=== PATIENT | female | born 1970 | race Hispanic/Latino ===

== ENCOUNTER → 2024-03-16 10:05 | Outpatient (CLI) | payer OTHER, MEDICAID, SELFPAY ==
[2024-03-16 10:31] LABS: Add Manual Diff / Slide Review NO; Basophils Absolute Auto 0 /uL (0-100); Basophils Percent Auto 0.6 % (0-2); Eosinophils Absolute Auto 300 /uL (0-450); Eosinophils Percent Auto 5.7 % (2-4); Hemoglobin 13.6 g/dL (12.0-16.0); Lymphocytes Absolute Auto 1600 /uL (1100-4500); Lymphocytes Percent Auto 35.1 % (25-40); Mean Corpuscular Hemoglobin 29.3 PG (26-34); Mean Corpuscular Volume 86.2 fL (80-100); Monocytes Absolute Auto 300 /uL (0-900); Neutrophils Absolute Auto 2300 /uL (1500-7000); Neutrophils Percent Auto 51.6 % (50-75); Platelet Count 224 X10^3/uL (150-400); Red Blood Cell Count 4.63 X10^6/uL (4.0-5.2); Red Cell Distribution Width 13.5 % (11.6-14.8); White Blood Cell Count 4.4 X10^3/uL (4.5-11.0)
[2024-03-16 10:51] LABS: Hemoglobin A1C% w Est Avg Glu 5.2 % (4.0-6.0)
[2024-03-16 10:58] LABS: BUN Creatinine Ratio 27.7 (6-22); Blood Urea Nitrogen 18 mg/dL (7-17); Calcium 9.3 mg/dL (8.4-10.2); Carbon Dioxide 26 mmol/L (22-32); Chloride 108 mmol/L (98-107); Cholesterol 215 mg/dL (140-199); Estimated Glomerular Filt Rate > 60 mL/min (>60); Glucose 100 mg/dL (70-100); HDL Cholesterol 65 mg/dL (40-60); HEMOLYSIS < 15 (0-50); LDL Cholesterol Calculated 134 mg/dL (<100); Potassium 3.9 mmol/L (3.4-5.1); Sodium 139 mmol/L (137-145); Triglycerides 78 mg/dL (35-150)
[2024-03-16 12:26] LABS: HIV 1 & 2 Ab/Ag 4th Gen Combo NEGATIVE (NEGATIVE); Hep C Virus Ab w/Reflex Quant NEGATIVE s/c (NEGATIVE)
== END ==
PROVIDERS: PCP Family Medicine; Referring Provider Family Medicine; Visit Provider Family Medicine
DX: Z11.59 Encounter for screening for other viral diseases (principal); Z13.220 Encounter for screening for lipoid disorders; E66.9 Obesity, unspecified; Z13.9 Encounter for screening, unspecified; Z11.4 Encounter for screening for human immunodeficiency virus [HIV]; Z13.1 Encounter for screening for diabetes mellitus
CPT/HCPCS: 36415; 80048; 80061; 83036; 85025; 86803; 87389

== ENCOUNTER 2024-03-26 12:56 | Day surgery (SDC) | payer OTHER, MEDICAID, SELFPAY ==
[2024-03-26] MEDS: LACTATED RINGERS 1,000 ML 42 ML IV (13:34)
--- NOTE | 2024-03-26 13:58 | P.HP_ITS ---
History of Present Illness History of Present Illness Date Patient Seen: 03/26/24 Time Patient Seen: 13:58 Chief complaint: Colonoscopy Narrative: 53-year-old woman here for 1st time screening colonoscopy. No abdominal concerns today. No family history of colon cancer. 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[employer] Smoking Status: Former smoker alcohol intake: former substance use type: does not use Meds Home Medications and Allergies Home Medications Medication Instructions Recorded Confirmed Type peg 3350-electrolytes 236 240 ml PO Q10M #4,000 mL 03/16/24 03/26/24 Rx gram-22.74 gram-6.74 gram-5.86 gram solution (Golytely) Allergies Allergy/AdvReac Type Severity Reaction Status Date / Time No Known Drug Allergies Allergy Verified 03/26/24 13:35 Exam Narrative Exam Narrative: General adult woman alert oriented no acute distress Chest nonlabored respiration Extremities warm well perfused Assessment & Plan Assessment & Plan narrative: The patient requires colorectal screening and colonoscopy is recommended. Technical details were discussed. Risks, benefits, alternatives explained. Risks including but not limited to myocardial infarction, aspiration, bleeding, pain, missed lesion, incomplete examination, need for further radiographic studies, intestinal injury, and need for major abdominal surgery were discussed. All questions were answered to their satisfaction, and they are in agreement with this plan. Time-Based Coding :: [TOTAL MINUTES] spent with patient and on the chart (including review of chart, obtaining history, exam, reviewing outside data, placing orders, documenting exam and treatment plan, and counseling patient) on [DATE].
[2024-03-26 14:25] VITALS: BP 101/66; PULSE 69; RESP 12; O2SAT 97
[2024-03-26 14:29] VITALS: BP 106/66; PULSE 60; RESP 14; O2SAT 98
--- NOTE | 2024-03-26 14:29 | P.OP.COLON_ITS ---
Operative Date/Time/Diagnoses Date of procedure: 03/26/24 Time of procedure: 14:29 Pre-op diagnosis: Colorectal screening Procedure & Clinicians Study performed: Colonoscopy Same procedure as scheduled: Yes Indications: Colorectal screening Surgeon: Lamont Lr Procedure Notes Procedure in detail: The history and physical was performed/updated and the patient is ASA class is 2. The procedure was discussed in detail with the patient. Potential risks complications including infection, bleeding, missed diagnosis, perforation, need for surgery, and were explained. Their questions were answered and informed consent was obtained. Patient was brought to the procedure room and placed standard monitoring equipment. The patient's vital signs were monitored continuously throughout the entire procedure. Prior to starting time-out was performed. The patient was placed in the left lateral recumbent position. Procedural sedation was administered by anesthesia. Examination began with a thorough inspection of the perianal area there was no evidence of fissures, fistulae, external hemorrhoids or cutaneous malignancy. The colonoscopy scope was then placed into the anal canal and was advanced to the cecum, which was identified by the ileocecal valve , the appendiceal orifice and the confluence of the taenia. The scope was then slowly withdrawn examining colon thoroughly in all directions, irrigating it of any residual stool. The scope was retroflexed within the rectum The patient tolerated the procedure well. They will be discharged once criteria are met. The prep was of good/excellent quality. The withdrawl time was 7 minutes. FINDINGS * Unremarkable colonoscopy. Normal healthy colonic mucosa without mass or polyps. Specimen(s): none sent Impression: Normal colonoscopy Post-procedure Recommendations: Colonoscopy in 10 years Disposition: same day surgery
[2024-03-26 14:34] VITALS: BP 113/69; PULSE 62; RESP 14; TEMP 36.6; O2SAT 98
== END 2024-03-26 14:55 | disposition home or self-care (01) ==
PROVIDERS: PCP Family Medicine; Referring Provider Surgery; Visit Provider Surgery
PROC: 0DJD8ZZ Inspection of Lower Intestinal Tract, Via Natural or Artificial Opening Endoscopic (ICD-10-PCS; CPT 45378; principal; 2024-03-26 13:45)
DX: Z12.11 Encounter for screening for malignant neoplasm of colon (principal)
CPT/HCPCS: 45378; J2704

== ENCOUNTER → 2024-04-21 08:00 | Outpatient (CLI) | payer OTHER, MEDICAID, SELFPAY ==
--- NOTE | 2024-04-21 08:01 | DI.US.S_ITS ---
PROCEDURE: US PELVIC COMPLETE INDICATIONS: pelvic pain and irregular menses TECHNIQUE: Real-time scanning was performed of the pelvic organs, with image documentation. Additional endovaginal scanning was necessary due to incomplete visualization of the adnexal and endometrial structures by transabdominal scanning. COMPARISON: None. FINDINGS: Uterus: Uterus is anteverted and normal in size at 8.2 x 3.7 x 4.7 cm. The myometrium is homogeneous. The endometrium measures 2 mm combined thickness. Ovaries: The right ovary measures 1.1 x 1.7 x 1.4 cm, with a calculated ovarian volume of 1.4 cc. The left ovary measures 1.9 x 1.1 x 2.2 cm, with a calculated ovarian volume of 2.2 cc. The ovaries have a normal sonographic appearance. Less than 12 follicles can be seen in each ovary. No adnexal masses are seen. Thick-walled left ovarian lesion with central anechoic appearance measuring 1.0 x 0.8 x 0.9 centimeter. Other: No pathologic free abdominal or pelvic fluid. IMPRESSION: Thick-walled left ovarian lesion measuring 1 centimeter. Findings could represent a degenerating corpus luteum , as the menopausal status was not recorded. Consider 6-12 week follow-up to ensure resolution . We strive to produce accurate, complete, and clear reports of imaging services. To assist us in improving patient care, this report was composed using standard report templates and voice recognition software. Therefore, it may contain abnormal punctuation, insertions and/or omissions. Occasional wrong-word or sound-alike substitutions may occur. Though we review the report and make efforts to correct it, we do recommend that the report be read carefully in proper context to recognize any text inaccuracies. Dictated by: Alexei Grewal M.D. on 04/21/2024 at 12:20 Approved by: Alexei Grewal M.D. on 04/21/2024 at 12:28
--- NOTE | 2024-04-21 09:22 | DI.RAD.S_ITS ---
PROCEDURE: XR HIP W PEL IF DONE STUART MIN 4V INDICATIONS: Hip Pain TECHNIQUE: AP pelvis with lateral view(s) of the 2 views of the hip(s). COMPARISON: None. FINDINGS: Bones: There are no osseous abnormalities. SI and hip joints: Normal in width and alignment without arthritic change Soft tissues: No soft tissue swelling, calcification or mass. IMPRESSION: Normal pelvis Dictated by: Kade Arthur M.D. on 04/22/2024 at 7:25 Approved by: Kade Arthur M.D. on 04/22/2024 at 7:26
== END ==
PROVIDERS: PCP Family Medicine; Referring Provider Family Medicine; Visit Provider Family Medicine
DX: N92.6 Irregular menstruation, unspecified (principal); R10.2 Pelvic and perineal pain; M25.551 Pain in right hip; M25.552 Pain in left hip; N83.9 Noninflammatory disorder of ovary, fallopian tube and broad ligament, unspecified
CPT/HCPCS: 73522; 76856

== ENCOUNTER → 2024-06-04 08:09 | Outpatient (CLI) | payer OTHER, MEDICAID, SELFPAY ==
--- NOTE | 2024-06-04 08:10 | DI.US.S_ITS ---
PROCEDURE: US PELVIC COMPLETE INDICATIONS: pelvic pain and ovarian cyst TECHNIQUE: Real-time scanning was performed of the pelvic organs, with image documentation. Additional endovaginal scanning was necessary due to incomplete visualization of the adnexal and endometrial structures by transabdominal scanning. COMPARISON: [facility], US, US PELVIC COMPLETE, 04/21/2024, 8:41. FINDINGS: Uterus: Uterus is anteverted and normal in size at 7.6 x 5.5 x 3.8 cm. The myometrium is homogeneous. The endometrium measures 4 mm combined thickness. No uterine fibroids. Ovaries: The right ovary measures 2.0 x 1.6 x 1.1 cm, with a calculated ovarian volume of 1.8 cc. The left ovary measures 2.4 x 1.9 x 1.1 cm, with a calculated ovarian volume of 2.6 cc. The ovaries have a normal sonographic appearance. Less than 12 follicles can be seen in each ovary. No adnexal masses are seen. Other: No pathologic free abdominal or pelvic fluid. Small fat containing umbilical hernia with wall defect measuring 1.3 centimeters. The hernia is mostly reducible. IMPRESSION: Resolution of prior thick-walled left ovarian cyst. The uterus and ovaries are normal in appearance. Small mostly reducible fat containing umbilical hernia with wall defect measuring 1.3 centimeters. We strive to produce accurate, complete, and clear reports of imaging services. To assist us in improving patient care, this report was composed using standard report templates and voice recognition software. Therefore, it may contain abnormal punctuation, insertions and/or omissions. Occasional wrong-word or sound-alike substitutions may occur. Though we review the report and make efforts to correct it, we do recommend that the report be read carefully in proper context to recognize any text inaccuracies. Dictated by: Meir Dudley M.D. on 06/04/2024 at 10:09 Approved by: Meir Dudley M.D. on 06/04/2024 at 10:11
== END ==
PROVIDERS: PCP Family Medicine; Referring Provider Family Medicine; Visit Provider Family Medicine
DX: R10.2 Pelvic and perineal pain (principal); K42.9 Umbilical hernia without obstruction or gangrene; N83.209 Unspecified ovarian cyst, unspecified side
CPT/HCPCS: 76830; 76856

== ENCOUNTER → 2024-06-18 14:12 | Outpatient (CLI) | payer OTHER, MEDICAID, SELFPAY ==
[2024-06-18 15:55] LABS: Free T4, Direct Thyroxine 0.89 ng/dL (0.78-2.19)
[2024-06-18 16:00] LABS: Follicle Stimulating Hormone 33.8 mIU/mL; Luteinizing Hormone 35.4 mIU/mL
[2024-06-18 16:09] LABS: Thyroid Stimulating Hormone 0.619 uIU/mL (0.47-4.68)
[2024-06-18 16:15] LABS: Estradiol, Total 14.6 pg/mL
== END ==
PROVIDERS: PCP Family Medicine; Referring Provider Family Medicine; Visit Provider Family Medicine
DX: N95.1 Menopausal and female climacteric states (principal); N92.6 Irregular menstruation, unspecified; K03 Other diseases of hard tissues of teeth; R10.31 Right lower quadrant pain; F32.1 Major depressive disorder, single episode, moderate; L98.8 Other specified disorders of the skin and subcutaneous tissue
CPT/HCPCS: 36415; 82670; 83001; 83002; 84439; 84443; 84481

== ENCOUNTER → 2024-07-27 12:52 | Outpatient (CLI) | payer OTHER, SELFPAY ==
--- NOTE | 2024-07-27 | DI.MG.S_ITS ---
BILATERAL DIGITAL SCREENING MAMMOGRAM 3D/2D WITH CAD: 07/27/2024 CLINICAL: Routine screening. Comparison is made to exam dated: 06/18/2023 mammogram - [facility]. There are scattered areas of fibroglandular density (category b / 25%-50% glandular tissue). Current study was also evaluated with a Computer Aided Detection (CAD) system. No significant masses, calcifications, or other findings are seen in either breast. There has been no significant interval change. IMPRESSION: NEGATIVE There is no mammographic evidence of malignancy. A 1 year screening mammogram is recommended. Based on the Tyrer Cuzick model (a risk assessment model) the patient's lifetime risk is 7.5% and her 10 year risk is 1.9%. According to the ACR, ACS, and NCCN guidelines, an annual breast MRI exam along with mammogram is recommended if the patient's lifetime risk is 20% or greater. This exam was interpreted at Station ID: [id number]. NOTE: For mammograms, a report in lay terms will be sent to the patient. Approximately 15% of breast malignancies will not be visualized mammographically. In the management of a palpable breast mass, a negative mammogram must not discourage biopsy of a clinically suspicious lesion. Electronically Signed By: Stewart goff/harmeet:07/27/2024 14:36:27 letter sent: Normal Exam ACR BI-RADS Category 1: Negative
== END ==
PROVIDERS: PCP Family Medicine; Referring Provider Family Medicine; Visit Provider Family Medicine
DX: Z12.31 Encounter for screening mammogram for malignant neoplasm of breast (principal)
CPT/HCPCS: 77063; 77067

== ENCOUNTER → 2024-09-20 08:18 | Outpatient (CLI) | payer OTHER, SELFPAY ==
[2024-09-20 09:08] LABS: Influenza A - CEPHEID Flu A POSITIVE (NEGATIVE); Influenza B - CEPHEID Flu B NEGATIVE (NEGATIVE); Respiratory Syncytial Virus Negative (Negative)
[2024-09-20 09:23] LABS: COVID-19 CEPHEID 4-PLEX PCR Negative (Negative)
== END ==
PROVIDERS: PCP Family Medicine; Visit Provider Nurse Practitioner Family
DX: R05.1 Acute cough (principal); J02.9 Acute pharyngitis, unspecified
CPT/HCPCS: 87635; 87400 ×2; 87420; 0241U; 87070

== ENCOUNTER 2024-09-22 10:12 | Emergency (ER) | payer OTHER, SELFPAY ==
[2024-09-22 10:30] VITALS: BP 137/90; PULSE 71; RESP 18; TEMP 36.4; O2SAT 98; BMI 30.2
--- NOTE | 2024-09-22 10:44 | DI.RAD.S_ITS ---
PROCEDURE: XR CHEST 1V INDICATIONS: chest pain TECHNIQUE: One view of the chest was acquired. COMPARISON: None. FINDINGS AND IMPRESSION: Low lung volumes. No dense airspace disease. No pleural effusions. Heart size is at the upper limit of normal. Degenerative osseous changes. Dictated by: Stewart Rodrigues M.D. on 09/22/2024 at 11:30 Approved by: Stewart Rodrigues M.D. on 09/22/2024 at 11:31
--- NOTE | 2024-09-22 10:44 | EKG_ITS ---
[address] [address] [address], [place] [address] Test Date: 2024-09-22 Pat Name: Leda Dalton Department: Room: Gender: Female Curriculum Coordinator: YUKI : 1970 Requested By: Order Number: [id number] Reading MD: Kade Meza MD Measurements Intervals [place] Rate: 63 P: 14 MA: 136 QRS: 29 QRSD: 76 T: 31 QT: 394 QTc: 403 Interpretive Statements Normal sinus rhythm Electronically Signed On 09-23-2024 7:36:21 PST by Kade Meza MD
[2024-09-22 10:56] LABS: Add Manual Diff / Slide Review NO; Basophils Absolute Auto 0 /uL (0-100); Basophils Percent Auto 0.7 % (0-2); Eosinophils Absolute Auto 500 /uL (0-450); Eosinophils Percent Auto 12.3 % (2-4); Hematocrit 40.9 % (36-46); Hemoglobin 13.7 g/dL (12.0-16.0); Lymphocytes Absolute Auto 1600 /uL (1100-4500); Lymphocytes Percent Auto 42.6 % (25-40); Mean Corpuscular HGB Conc 33.4 % (30-36); Mean Corpuscular Hemoglobin 29.1 PG (26-34); Mean Corpuscular Volume 86.9 fL (80-100); Monocytes Absolute Auto 400 /uL (0-900); Monocytes Percent Auto 10.5 % (3-14); Neutrophils Absolute Auto 1300 /uL (1500-7000); Neutrophils Percent Auto 33.9 % (50-75); Platelet Count 208 X10^3/uL (150-400); Red Blood Cell Count 4.71 X10^6/uL (4.0-5.2); Red Cell Distribution Width 13.6 % (11.6-14.8); White Blood Cell Count 3.8 X10^3/uL (4.5-11.0)
[2024-09-22 11:03] LABS: Prothrombin Time 11.1 SECONDS (9.4-12.5)
[2024-09-22 11:05] LABS: PTT Partial Thromboplastin Tim 33 SECONDS (25.1-36.5)
[2024-09-22 11:06] LABS: Alanine Aminotransferase 44 IU/L (<35); Albumin 4.3 g/dL (3.5-5.0); Albumin Globulin Ratio 1.3 (1.0-2.8); Alkaline Phosphatase 100 U/L (38-126); Aspartate Aminotransferase 44 IU/L (14-36); BUN Creatinine Ratio 27.3 (6-22); Bilirubin Total 0.3 mg/dL (0.2-1.3); Blood Urea Nitrogen 15 mg/dL (7-17); Carbon Dioxide 26 mmol/L (22-32); Chloride 107 mmol/L (98-107); Creatine Kinase 49 U/L (30-135); Estimated Glomerular Filt Rate > 60 mL/min (>60); Globulin 3.4 g/dL (1.7-4.1); Glucose 91 mg/dL (70-100); HEMOLYSIS < 15 (0-50); Lipase 78 U/L (23-300); Magnesium 2.1 mg/dL (1.6-2.3); Potassium 4.3 mmol/L (3.4-5.1); Sodium 140 mmol/L (137-145); Total Protein 7.7 g/dL (6.3-8.2)
--- NOTE | 2024-09-22 11:14 | ED_ITS ---
HPI - Chest Pain General Chief Complaint: Chest Pain Stated Complaint: Mild chest pain Time Seen by Provider: 09/22/24 10:46 Source: patient Mode of arrival: Ambulatory Limitations: no limitations History of Present Illness HPI narrative: Patient here for left-sided chest pain radiating to left arm and tingling to the legs. [employer] Operator services used. Patient has tested positive for the flu this past weekend. Has cough cold congestion. Pain is constant. 8/10 sharp burning pain. Patient denies any history of heart attack strokes or diabetes. No primary family history of heart attack. Grandfather did have heart attack. Patient does not smoke. No exertional chest pain or shortness of breath. Patient has low heart score. Heart score of 2. No history of blood clots in legs or lungs. No history aortic dissection or aneurysm. Pain is mostly left- sided chest. It is constant since last night. It does get worse with coughing and deep breath. Related Data Previous Rx's Medication Instructions Recorded benzonatate 200 mg capsule 200 mg PO BID PRN cough #28 caps 09/20/24 Allergies Allergy/AdvReac Type Severity Reaction Status Date / Time No Known Drug Allergies Allergy Verified 09/20/24 08:12 Review of Systems Review of Systems Narrative: GENERAL: Positive chills, fatigue, malaise, fever, sweats. HEENT: Negative sinus pain, ear pain, sore throat RESPIRATORY: Negative dyspnea, cough CARDIOVASCULAR: Positive chest pain, negative palpitations GASTROINTESTINAL: Negative nausea, vomiting, abdominal pain : Negative dysuria, frequency, hematuria MUSCULOSKELETAL: Negative muscle or bony pain SKIN: Negative rash, skin lesions NEUROLOGIC: Negative weakness, positive numbness ROS Unobtainable: All systems reviewed & are unremarkable except as noted in HPI and below Patient History Social History marital status: details: Lives with daughter, son-in-law, grandson household members: family lives independently: Yes housing: condominium occupational status: employed 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 EYES: Pupils equal round ENT: Mucous membranes moist. NECK: Trachea midline. CARDIOVASCULAR: Regular rate and rhythm strong bilateral carotid and radial pulses RESPIRATORY: Clear to auscultation. Breath sounds equal bilaterally. No wheezes, rales, or rhonchi. GASTROINTESTINAL: Abdomen soft, non-tender EXTREMITIES: No gross deformities. BACK: No flank tenderness. NEURO: AOx4. Clear speech, no slurred speech, light touch intact bilateral face hands and legs strong equal candy separator hard. Fast exam is negative negative pronator drift SKIN: Warm and dry PSYCH: Not anxious, is cooperative Initial Vital Signs Initial Vital Signs: Vital Signs Temperature 97.6 F 09/22/24 10:30 Pulse Rate 71 09/22/24 10:30 Respiratory Rate 18 09/22/24 10:30 Blood Pressure 137/90 09/22/24 10:30 Pulse Oximetry 98 09/22/24 10:30 Oxygen Delivery Method Room Air 09/22/24 10:30 Scores HEART Score Heart Score history: Slightly Suspicious Heart Score EKG: Normal Heart Score Age: 45-64 years old Heart Score risk factors: 1-2 risk factors Heart Score troponin: < or = to normal limit Heart Score Total: 2 Course Orders Ordered: Discontinued Medications Ketorolac Tromethamine (Ketorolac 30 Mg/Ml Vial) 15 mg IV NOW ONE Stop: 09/22/24 11:18 Last Admin: 09/22/24 14:12 Dose: 15 mg Documented By: JERRY Sodium Chloride (Sodium Chloride 0.9% Flush) 50 ml IV NOW ONE Stop: 09/22/24 11:20 Last Admin: 09/22/24 14:13 Dose: Not Given Documented By: JERRY Vital Signs Vital signs: Vital Signs - 8 hr 09/22/24 10:30 09/22/24 13:46 Temperature 97.6 F 98.0 F Pulse Rate 71 60 Respiratory Rate 18 Blood Pressure 137/90 120/76 Pulse Oximetry 98 98 Oxygen Delivery Method Room Air Room Air MDM - Chest Pain Lab Data 09/22/24 10:48 09/22/24 10:48 Labs: Lab Results 09/22/24 Range/Units 10:48 WBC 3.8 L (4.5-11.0) X10^3/uL RBC 4.71 (4.0-5.2) X10^6/uL Hgb 13.7 (12.0-16.0) g/dL Hct 40.9 (36-46) % MCV 86.9 (80-100) fL MCH 29.1 (26-34) PG MCHC 33.4 (30-36) % RDW 13.6 (11.6-14.8) % Plt Count 208 (150-400) X10^3/uL Neut % (Auto) 33.9 L (50-75) % Lymph % (Auto) 42.6 H (25-40) % [place] % (Auto) 10.5 (3-14) % Eos % (Auto) 12.3 H (2-4) % Baso % (Auto) 0.7 (0-2) % Neut # (Auto) 1300 L (2125-5799) /uL Lymph # (Auto) 1600 (9941-7143) /uL [place] # (Auto) 400 (0-900) /uL Eos # (Auto) 500 H (0-450) /uL Baso # (Auto) 0 (0-100) /uL PT 11.1 (9.4-12.5) SECONDS INR 1.0 (0.9-1.3) APTT 33 (25.1-36.5) SECONDS Sodium 140 (137-145) mmol/L Potassium 4.3 (3.4-5.1) mmol/L Chloride 107 (98-107) mmol/L Carbon Dioxide 26 (22-32) mmol/L BUN 15 (7-17) mg/dL Creatinine 0.55 (0.52-1.04) mg/dL Estimated GFR > 60 (>60) mL/min BUN/Creatinine Ratio 27.3 H (6-22) Glucose 91 (70-100) mg/dL Calcium 9.0 (8.4-10.2) mg/dL Magnesium 2.1 (1.6-2.3) mg/dL Total Bilirubin 0.3 (0.2-1.3) mg/dL AST 44 H (14-36) IU/L ALT 44 H (<35) IU/L Alkaline Phosphatase 100 (38-126) U/L Total Creatine Kinase 49 (30-135) U/L Troponin I < 0.012 (0.01-0.034) ng/mL NT-Pro-B Natriuret Pep < 20 (<125) pg/mL Total Protein 7.7 (6.3-8.2) g/dL Albumin 4.3 (3.5-5.0) g/dL Globulin 3.4 (1.7-4.1) g/dL Albumin/Globulin Ratio 1.3 (1.0-2.8) Lipase 78 (23-300) U/L Imaging Data Chest x-ray: Radiologist's Impression: [address] [address] XRay Report Signed Patient: Leda Dalton I MR#: [id number] : 1970 Acct:[id number] Age/Sex: 54 / F Date of Service: 09/22/24 Loc: ED Accession Number: [id number] Procedure: XR chest 1V Ordering Provider: Jones Shafer MD PROCEDURE: XR CHEST 1V INDICATIONS: chest pain TECHNIQUE: One view of the chest was acquired. COMPARISON: None. FINDINGS AND IMPRESSION: Low lung volumes. No dense airspace disease. No pleural effusions. Heart size is at the upper limit of normal. Degenerative osseous changes. Dictated by: Stewart Rodrigues M.D. on 09/22/2024 at 11:30 Approved by: Stewart Rodrigues M.D. on 09/22/2024 at 11:31 CT scan - chest: Radiologist's Impression: [place] [address] CT Scan Report Signed Patient: Leda Dalton I MR#: [id number] : 1970 Acct:[id number] Age/Sex: 54 / F Date of Service: 09/22/24 Loc: ED Accession Number: [id number] Procedure: CT angio chest PE protocol Ordering Provider: Jones Shafer MD PROCEDURE: CT ANGIO CHEST PE PROTOCOL INDICATIONS: Chest pain dyspnea TECHNIQUE: After the administration of intravenous contrast, 2 mm thick sections acquired from the pulmonary apices to the posterior costophrenic angles. 3-dimensional maximum intensity projection (MIP) coronal and sagittal reformats were then acquired through the thorax. For radiation dose reduction, the following was used: automated exposure control, adjustment of mA and/or kV according to patient size. COMPARISON: None. FINDINGS: Image quality: Diagnostic. Pulmonary arteries: Pulmonary arteries are normal in size, and demonstrate no intraluminal filling defects to suggest central pulmonary embolism. Lower Neck: No enlarged lymph nodes. Thyroid: No thyroid nodules which require sonographic follow up, per consensus guidelines. Axillae: No enlarged lymph nodes. Chest Wall: Unremarkable. Bones: Unremarkable. Lungs and Pleura: No pneumothorax or pleural effusions. No consolidation or suspicious nodules. Heart: Heart size is normal. No pericardial effusion. Thoracic Vessels: No aortic aneurysm. Mediastinum and Melodie: No enlarged lymph nodes. Esophagus: No wall thickening. No hiatal hernia. Upper Abdomen: Visualized upper abdomen solid organs and bowel loops appear normal. IMPRESSION: No pulmonary embolus. No acute cardiopulmonary process. Dictated by: Meir Dudley M.D. on 09/22/2024 at 12:53 Approved by: Meir Dudley M.D. on 09/22/2024 at 12:57 [facility] Narrative Medical decision making narrative: Patient here for left-sided chest pain radiating to left arm and tingling to the legs. Grit Removal Operator services used. Patient has tested positive for the flu this past weekend. Has cough cold congestion. Pain is constant. 8/10 sharp burning pain. Patient denies any history of heart attack strokes or diabetes. No primary family history of heart attack. Grandfather did have heart attack. Patient does not smoke. No exertional chest pain or shortness of breath. Patient has low heart score. Heart score of 2. No history of blood clots in legs or lungs. No history aortic dissection or aneurysm. Pain is mostly left- sided chest. It is constant since last night. It does get worse with coughing and deep breath. After history and exam CBC CMP troponin chest x-ray EKG CT chest Toradol [facility] Medical records reviewed: September 20 2024 laboratory studies positive for the flu Differential considered: Includes but not limited to pulmonary embolism heart attack STEMI non-STEMI angina pleurisy pneumonia costochondritis aortic dissection Lab Test results independently reviewed as above. Pertinent findings: WBC 3.8 hemoglobin 13.7 sodium 140 potassium 4.3 AST 44 ALT 44 troponin less than 0.012 Independently reviewed EKG normal sinus rhythm normal EKG rate 63 Imaging studies independently reviewed: Chest x-ray and CT chest no acute finding Consultations: None indicated at this time. Treatments: Toradol Re-evaluations: 2:21 p.m.. Updated patient results. She is feeling better after Toradol. Did help the chest pain. When coughing and deep breath pain has improved. Daughter at bedside, they do not want sld inclusion teacher services. Daughter will translate. I informed them this is likely pleurisy/costochondritis. She has low heart risk factors and low heart score. They will continue Tylenol ibuprofen for discomfort. They did receive cough medication from the walk-in clinic. They do understand no antibiotics are indicated for the flu. Return precautions reviewed. Work note provided for this week. She they desire discharge. Reviewed with him this is likely not cardiac. Patient likely has pleurisy/costochondritis I did describe to them no specific test that confirms this but it is a diagnosis of elimination Discussion: Appropriate for discharge home. Exam is reassuring. Pain in the left chest is reproducible and improved with Toradol. Generalized limb weakness likely due to the flu. Patient feeling better at time of discharge. She desires discharge home. Return precautions reviewed Diagnosis: Pleurisy Discharge Plan Departure Patient Disposition: Home Clinical Impression: Acute pleurisy without pleural effusion, Acute viral syndrome Instructions: DI for Pleurisy, DI for Viral Syndrome Activity Restrictions/Additional Instructions: Your exam laboratory studies are reassuring. You likely have pleurisy/viral syndrome from infection with the flu. Keep well hydrated. See family doctor next week for re-evaluation. Work note has been provided for you for this week. Continue ibuprofen and Tylenol for pain. Continue your prescribed cough medication from the walk-in clinic. Return if worse if any questions or concerns Prescriptions: No Action benzonatate 200 mg capsule 200 mg PO BID PRN (Reason: cough) Qty: 28 0RF Referrals: Td Vázquez MD [Primary Care Provider] - Stand Alone Forms: Patient Portal/API/Survey, Work Release Note
--- NOTE | 2024-09-22 11:17 | DI.CT.S_ITS ---
PROCEDURE: CT ANGIO CHEST PE PROTOCOL INDICATIONS: Chest pain dyspnea TECHNIQUE: After the administration of intravenous contrast, 2 mm thick sections acquired from the pulmonary apices to the posterior costophrenic angles. 3-dimensional maximum intensity projection (MIP) coronal and sagittal reformats were then acquired through the thorax. For radiation dose reduction, the following was used: automated exposure control, adjustment of mA and/or kV according to patient size. COMPARISON: None. FINDINGS: Image quality: Diagnostic. Pulmonary arteries: Pulmonary arteries are normal in size, and demonstrate no intraluminal filling defects to suggest central pulmonary embolism. Lower Neck: No enlarged lymph nodes. Thyroid: No thyroid nodules which require sonographic follow up, per consensus guidelines. Axillae: No enlarged lymph nodes. Chest Wall: Unremarkable. Bones: Unremarkable. Lungs and Pleura: No pneumothorax or pleural effusions. No consolidation or suspicious nodules. Heart: Heart size is normal. No pericardial effusion. Thoracic Vessels: No aortic aneurysm. Mediastinum and Melodie: No enlarged lymph nodes. Esophagus: No wall thickening. No hiatal hernia. Upper Abdomen: Visualized upper abdomen solid organs and bowel loops appear normal. IMPRESSION: No pulmonary embolus. No acute cardiopulmonary process. Dictated by: Meir Dudley M.D. on 09/22/2024 at 12:53 Approved by: Meir Dudley M.D. on 09/22/2024 at 12:57
[2024-09-22 11:18] LABS: NT-proBNP (BNP-Adult 18+) < 20 pg/mL (<125); Troponin I < 0.012 ng/mL (0.01-0.034)
[2024-09-22 13:46] VITALS: BP 120/76; PULSE 60; TEMP 36.7; O2SAT 98
[2024-09-22 14:10] VITALS: PULSE 60
[2024-09-22 14:11] VITALS: BP 145/82; PULSE 57; RESP 20; O2SAT 98
[2024-09-22] MEDS: KETOROLAC 30 MG/ML VIAL 15 MG IV (14:12)
== END 2024-09-22 14:41 | disposition home or self-care (01) ==
PROVIDERS: Emergency Provider Emergency Medicine; PCP Family Medicine
DX: R09.1 Pleurisy (principal); B34.9 Viral infection, unspecified; R20.2 Paresthesia of skin
CPT/HCPCS: 71045; 71275; 80053; 82550; 83690; 83735; 83880; 84484; 85025; 85610; 85730; 93005; 96374; 99284; J1885; Q9967

== ENCOUNTER → 2024-12-03 08:45 | Outpatient (CLI) | payer OTHER, SELFPAY ==
--- NOTE | 2024-12-03 08:47 | DI.RAD.S_ITS ---
PROCEDURE: XR ANKLE RT MIN 3V INDICATIONS: R ankle/foot pain TECHNIQUE: 3 views of the ankle were acquired. COMPARISON: None. FINDINGS: Bones: No fractures or dislocations. Ankle mortise is normally aligned. No suspicious bony lesions. Plantar and retrocalcaneal enthesopathy. Soft tissues: No tibiotalar joint effusion. Achilles tendon appears normal. IMPRESSION: No acute bony abnormality or significant effusion. Dictated by: Kosta Hogue M.D. on 12/04/2024 at 23:54 Approved by: Kosta Hogue M.D. on 12/04/2024 at 23:55
--- NOTE | 2024-12-03 08:47 | DI.RAD.S_ITS ---
PROCEDURE: XR FOOT RT MIN 3V INDICATIONS: R ankle/foot pain TECHNIQUE: 3 views of the foot were acquired. COMPARISON: None. FINDINGS: Bones: No fractures or dislocations. No suspicious bony lesions. Plantar and retrocalcaneal enthesopathy. Soft tissues: No tibiotalar joint effusion. Achilles tendon appears normal. IMPRESSION: No acute bony abnormality. Dictated by: Kosta Hogue M.D. on 12/04/2024 at 23:55 Approved by: Kosta Hogue M.D. on 12/04/2024 at 23:58
== END ==
PROVIDERS: PCP Family Medicine; Referring Provider Family Medicine; Visit Provider Family Medicine
DX: M79.671 Pain in right foot (principal); M77.31 Calcaneal spur, right foot; M25.571 Pain in right ankle and joints of right foot
CPT/HCPCS: 73610; 73630

== ENCOUNTER → 2025-01-06 13:16 | Outpatient (CLI) | payer OTHER, SELFPAY ==
[2025-01-06 14:29] LABS: Influenza A - CEPHEID Flu A NEGATIVE (NEGATIVE); Influenza B - CEPHEID Flu B NEGATIVE (NEGATIVE); Respiratory Syncytial Virus Negative (Negative)
[2025-01-06 14:38] LABS: COVID-19 CEPHEID 4-PLEX PCR Negative (Negative)
== END ==
PROVIDERS: Family Provider Family Medicine; PCP Family Medicine; Visit Provider Nurse Practitioner Family
DX: R51.9 Headache, unspecified (principal); J02.9 Acute pharyngitis, unspecified
CPT/HCPCS: 0241U; 87070